=== PATIENT | male | born 1960 | race Caucasian/White ===

== ENCOUNTER 2018-06-01 05:58 | Observation (INO) ==
[2018-06-01] MEDS ORDERED: Dicyclomine 10 MG Capsule PO ONE (06:23)
[2018-06-01] MEDS ORDERED: Morphine Inj 4 MG/ML Vial IV.PUSH ONE (06:23)
--- NOTE | 2018-06-01 06:30 | ED ---
HPI General Chief Complaint: Abdominal Pain Stated Complaint: Lower abd pain Time Seen by Provider: 06/01/18 06:16 Source: patient Mode of arrival: ambulatory Limitations: no limitations History of Present Illness HPI narrative: Patient is a 58-year-old male, past medical history significant for hypertension, presents with complaint of left lower quadrant abdominal pain for the last several weeks that has worsened over the last 1-2 days. He states he has had some profuse watery, nonbloody diarrhea over the last 1-2 days in addition to nausea and nonbilious, nonbloody emesis. He has had chills but no fever. He has not been on antibiotics recently. The patient also reports that one week ago he had an episode of substernal chest pain with dyspnea that lasted 3 hours and resolved on its own. It occurred while doing nothing in particular was not associated with exertion. He has had intermittent "twinges" of this discomfort and dyspnea since then. He denies any chest pain at this time but does state that he feels like it is hard for him to take a deep breath sporadically at this time. No leg swelling or immobilization. No family history of venous thromboembolism nor early cardiac disease. MD complaint: abdominal pain Onset (ago): week(s) Location: LLQ Severity: moderate Quality: stabbing and dull Radiation: none Migration to: no migration Relieving factors: nothing Exacerbating factors: nothing Associated symptoms: nausea, vomiting, diarrhea and chills Related Data Home Medications Medication Instructions Recorded Confirmed chlorthalidone 25 mg PO DAILY 06/01/18 06/01/18 clonidine HCl 0.2 mg PO BID 06/01/18 06/01/18 gabapentin 600 mg PO TID 06/01/18 06/01/18 metoprolol tartrate 100 mg PO BID 06/01/18 06/01/18 potassium chloride [Klor-Con] 20 meq PO DAILY 06/01/18 06/01/18 sertraline 100 mg PO DAILY 06/01/18 06/01/18 Allergies Allergy/AdvReac Type Severity Reaction Status Date / Time No Known Allergies Allergy Verified 06/01/18 06:13 Review of Systems ROS: all other systems reviewed are negative [facility] Medical History Medical History Chronic back pain (Acute) Congestive heart failure (Acute) Depression (Acute) Neuropathy (Acute) Obesity (BMI 30-39.9) (Acute) Hypertension (Chronic) Surgical History Surgical History Hx of tonsillectomy (Acute) Family History Family History Mother CHF (congestive heart failure) Myocardial infarction FH: CABG (coronary artery bypass surgery) Social History Social History Substance History: No History of Abuse Second Hand Smoke Exposure: No Smoking Status: Former smoker (smoked early 20s, total 6 pack year history) Number of Pack-Years (if former smoker): 6 Smoking End Date: How Often Do You Have a Drink Containing Alcohol: Monthly or less (alcohol rare mostly during holidays) Recent Travel in [facility] within the Last 8 Weeks: No Recent Out of Country Travel within the Last 8 Weeks: No Immunization History Tetanus Immunization: Unsure Hx Influenza Vaccine This Season: No Exam Narrative Exam Narrative: GENERAL: Well-appearing male in no acute distress SKIN: Focused skin assessment warm/dry. No rashes. HEAD: Atraumatic. Normocephalic. EYES: Pupils equal and round. No scleral icterus. No injection or drainage. ENT: No nasal bleeding or discharge. Mucous membranes pink and moist. NECK: Trachea midline. No JVD. CARDIOVASCULAR: Regular rate and rhythm. No murmur appreciated. Intact and equal peripheral pulses. RESPIRATORY: No accessory muscle use. Clear to auscultation. Breath sounds equal bilaterally. GASTROINTESTINAL: Abdomen soft, nondistended. Tenderness on palpation in the left lower quadrant. MUSCULOSKELETAL: No obvious deformities. No clubbing. No cyanosis. No edema. NEUROLOGICAL: Awake and alert. No obvious cranial nerve deficits. Motor grossly within normal limits. Normal sensation. Normal speech. PSYCHIATRIC: Normal mood and affect Course Initial Documented Vital Signs Temperature 97.5 F L 06/01/18 06:02 Pulse Rate 68 06/01/18 06:02 Respiratory Rate 27 H 06/01/18 06:02 Blood Pressure 155/84 H 06/01/18 06:02 Pulse Oximetry 98 06/01/18 06:02 Last Documented Vital Signs Temperature 98.4 F 06/01/18 11:39 Pulse Rate 57 L 06/01/18 14:50 Respiratory Rate 20 06/01/18 11:39 Blood Pressure 109/67 06/01/18 11:39 Pulse Oximetry 91 L 06/01/18 11:39 Sign Out Sign Out Data: Patient Sign Out occurred on 06/01/18 at 08:46. Patient's care was discussed, and care was transferred from Tg Lagos MD to Nicolás Vickers MD. Sign Out Comment: Labs, imaging pending. Dispo per results. Last updated by Tg Lagos MD at 06/01/18 06:42 Post-Handoff Eval: The patient was signed out to me by Dr. Lagos at change of shift. We are awaiting CT scan of the M pelvis. The patient presented with abdominal pain. He is also been having intermittent chest pain for several weeks. Patient does have a history of cardiac disease with CHF. EKG and cardiac enzymes are within normal limits. CT scan shows diverticulosis with out obvious diverticulitis. Given the patient's pain and symptoms, we will treat him for early diverticulitis. He has been given ciprofloxacin 500 mg and Flagyl 500 mg 1 dose here. He will have further prescriptions written. He will be placed in the chest pain center for rule out protocol given his cardiac history and intermittent chest pain. Medical Decision Making MDM Narrative Medical decision making narrative: Patient is a 58-year-old male who presents with complaint of abdominal pain with nausea, vomiting, diarrhea in addition to intermittent chest. He appears well but does have tenderness on abdominal exam in the left lower quadrant. Vital signs are stable. EKG is unchanged from that in 2013. Chest x-ray, CT, labs have been ordered and are pending at time of checkout. Medical Screen Exam Complete: Yes Emergency Medical Condition: Yes Differential Diagnosis Differential Diagnosis: Differential diagnosis includes but is not limited to diverticulitis, electrolyte abnormality, anemia, pneumonia, anxiety, acute coronary syndrome. Medical Records Medical records reviewed: Yes I reviewed the patient's medical records. Lab Data Result diagrams: 06/01/18 06:40 06/01/18 06:40 Lab Results 06/01/18 06/01/18 06/01/18 Range/Units 06:40 06:40 06:40 WBC 9.5 (4.0-11.0) th/mm3 RBC 5.29 (4.50-5.90) mil/mm3 Hgb 15.9 (13.0-17.0) gm/dL Hct 47.8 (39.0-51.0) % MCV 90.3 (80.0-100.0) fL MCH 30.1 (27.0-34.0) pg MCHC 33.3 (32.0-36.0) % RDW 14.1 (11.6-17.2) % Plt Count 205 (150-450) th/mm3 MPV 9.1 (7.0-11.0) fL Neut % (Auto) 65.2 (16.0-70.0) % Lymph % (Auto) 22.6 (9.0-44.0) % [place] % (Auto) 9.4 H (0.0-8.0) % Eos % (Auto) 2.4 (0.0-4.0) % Baso % (Auto) 0.4 (0.0-2.0) % Neut # (Auto) 6.2 (1.8-7.7) th/mm3 Lymph # (Auto) 2.1 (1.0-4.8) th/mm3 [place] # (Auto) 0.9 (0.0-0.9) th/mm3 Eos # (Auto) 0.2 (0.0-0.4) th/mm3 Baso # (Auto) 0.0 (0.0-0.2) th/mm3 WBC Differential . Differential Comment Auto diff final Sodium 138 (136-145) meq/L Potassium 4.4 (3.5-5.1) meq/L Chloride 100 (98-107) meq/L Carbon Dioxide 30.4 (21.0-32.0) meq/L Anion Gap 8 (5-15) meq/L BUN 19 H (7-18) mg/dL Creatinine 1.19 (0.60-1.30) mg/dL Estimated GFR 62 L (>89) mL/min Random Glucose 99 (74-106) mg/dL Calcium 8.7 (8.5-10.1) mg/dL Total Bilirubin 0.5 (0.2-1.0) mg/dL AST 14 L (15-37) U/L ALT 34 (12-78) U/L Alkaline Phosphatase 103 (45-117) U/L Total Creatine Kinase (39-308) U/L Troponin I Less than 0.02 L (0.02-0.05) ng/mL B-Natriuretic Peptide 88 (0-100) pg/mL Total Protein 7.6 (6.4-8.2) g/dL Albumin 3.7 (3.4-5.0) g/dL Lipase 229 (73-393) U/L 06/01/18 06/01/18 Range/Units 09:36 11:59 WBC (4.0-11.0) th/mm3 RBC (4.50-5.90) mil/mm3 Hgb (13.0-17.0) gm/dL Hct (39.0-51.0) % MCV (80.0-100.0) fL MCH (27.0-34.0) pg MCHC (32.0-36.0) % RDW (11.6-17.2) % Plt Count (150-450) th/mm3 MPV (7.0-11.0) fL Neut % (Auto) (16.0-70.0) % Lymph % (Auto) (9.0-44.0) % [place] % (Auto) (0.0-8.0) % Eos % (Auto) (0.0-4.0) % Baso % (Auto) (0.0-2.0) % Neut # (Auto) (1.8-7.7) th/mm3 Lymph # (Auto) (1.0-4.8) th/mm3 [place] # (Auto) (0.0-0.9) th/mm3 Eos # (Auto) (0.0-0.4) th/mm3 Baso # (Auto) (0.0-0.2) th/mm3 WBC Differential Differential Comment Sodium (136-145) meq/L Potassium (3.5-5.1) meq/L Chloride (98-107) meq/L Carbon Dioxide (21.0-32.0) meq/L Anion Gap (5-15) meq/L BUN (7-18) mg/dL Creatinine (0.60-1.30) mg/dL Estimated GFR (>89) mL/min Random Glucose (74-106) mg/dL Calcium (8.5-10.1) mg/dL Total Bilirubin (0.2-1.0) mg/dL AST (15-37) U/L ALT (12-78) U/L Alkaline Phosphatase (45-117) U/L Total Creatine Kinase 43 39 (39-308) U/L Troponin I Less than 0.02 L Less than 0.02 L (0.02-0.05) ng/mL B-Natriuretic Peptide (0-100) pg/mL Total Protein (6.4-8.2) g/dL Albumin (3.4-5.0) g/dL Lipase (73-393) U/L Imaging Data Radiologist's impression: Myocardial Perfusion Scan Nuc Med 06/01/18 00:00 CONCLUSION: 1. Negative examination. Abdomen/Pelvis CT 06/01/18 06:23 CONCLUSION: 1. Uncomplicated colonic diverticulosis. 2. Posterior bibasilar atelectasis. 3. Degenerative changes and scoliosis of the thoracolumbar spine. Chest X-Ray 06/01/18 06:23 CONCLUSION: No acute disease ECG Data EKG Prior to Arrival: No Attestation: I personally reviewed and interpreted this ECG as follows: (Sinus bradycardia at a rate of 57 bpm. T-wave inversions present in lead III but no other ST or T-wave changes, when compared to EKG from 2013 this is unchanged.) Prior ECG tracings: available for review Discharge Plan Discharge Disposition Patient Disposition: 30 Still Patient Discharge Condition Condition: Stable Discharge Order Discharge Orders: Discharge Order (Routine); Ordered 06/01/18 Ordered By: Shauna Sharma Discharge Details Anticipated Discharge Date: 06/01/18 Diagnosis: Abdominal pain, acute, Acute dyspnea, Chest pain Physicians Team ED Provider: Nicolás Vickers Primary Care Provider: Hemant Sarmiento Attending Provider: Marsha Zhao Status ED Status: Left Department Discharge Information Discharge Date/Time: 06/01/18 10:00
[2018-06-01 06:57] LABS: Baso % (Auto) 0.4 % (0.0-2.0); Eos # (Auto) 0.2 th/mm3 (0.0-0.4); Eos % (Auto) 2.4 % (0.0-4.0); Hematocrit 47.8 % (39.0-51.0); Hemoglobin 15.9 gm/dL (13.0-17.0); Lymph # (Auto) 2.1 th/mm3 (1.0-4.8); Lymph % (Auto) 22.6 % (9.0-44.0); Mean Corpuscular HGB Conc 33.3 % (32.0-36.0); Mean Corpuscular Hemoglobin 30.1 pg (27.0-34.0); Mean Corpuscular Volume 90.3 fL (80.0-100.0); Mean Platelet Volume 9.1 fL (7.0-11.0); Mono # (Auto) 0.9 th/mm3 (0.0-0.9); Mono % (Auto) 9.4 % (0.0-8.0); Neut # (Auto) 6.2 th/mm3 (1.8-7.7); Neut % (Auto) 65.2 % (16.0-70.0); Platelet Count 205 th/mm3 (150-450); Red Blood Count 5.29 mil/mm3 (4.50-5.90); Red Cell Distribution Width 14.1 % (11.6-17.2); White Blood Count 9.5 th/mm3 (4.0-11.0)
[2018-06-01 07:13] LABS: Alanine Aminotransferase 34 U/L (12-78); Albumin 3.7 g/dL (3.4-5.0); Anion Gap 8 meq/L (5-15); Aspartate Aminotransferase 14 U/L (15-37); Blood Urea Nitrogen 19 mg/dL (7-18); Calcium 8.7 mg/dL (8.5-10.1); Carbon Dioxide 30.4 meq/L (21.0-32.0); Chloride 100 meq/L (98-107); Glomerular Filtration Rate 62 mL/min (>89); Glucose,Random 99 mg/dL (74-106); Lipase 229 U/L (73-393); Potassium 4.4 meq/L (3.5-5.1); Sodium 138 meq/L (136-145)
[2018-06-01 07:18] LABS: Alkaline Phosphatase 103 U/L (45-117); Total Protein 7.6 g/dL (6.4-8.2)
[2018-06-01] MEDS ORDERED: Ciprofloxacin 500 MG Tablet PO ONE (08:54)
[2018-06-01] MEDS ORDERED: metroNIDAZOLE 500 MG Tablet PO ONE (08:54)
[2018-06-01] MEDS ORDERED: Acetaminophen 500 MG Tablet PO PRN (09:14)
[2018-06-01 10:52] LABS: Creatine Kinase 43 U/L (39-308)
[2018-06-01 12:44] LABS: Creatine Kinase 39 U/L (39-308)
--- NOTE | 2018-06-01 14:14 | ECG ---
Date Performed: 06/01/2018 Time Performed: 06:28:14 PTAGE: 58 years EKG: SINUS BRADYCARDIA BORDERLINE ECG NO PREVIOUS TRACING DOCTOR: Luis Wynne Interpretating Date/Time 06/01/2018 14:13:00
--- NOTE | 2018-06-01 14:22 | ECG ---
Date Performed: 06/01/2018 Time Performed: 09:43:06 PTAGE: 58 years EKG: SINUS BRADYCARDIA BORDERLINE ECG PREVIOUS TRACING : 06/01/2018 06.28 Since previous tracing, no significant change noted DOCTOR: Luis Wynne Interpretating Date/Time 06/01/2018 14:20:22
[2018-06-01] MEDS ORDERED: Regadenoson Inj 0.4 MG/5 ML Syringe IV.PUSH ONE (15:19)
--- NOTE | 2018-06-02 14:11 | ECG ---
Date Performed: 06/01/2018 Time Performed: 13:27:52 PTAGE: 58 years EKG: SINUS BRADYCARDIA MINIMAL VOLTAGE CRITERIA FOR LVH, CONSIDER NORMAL VARIANT ABNORMAL ECG WA RNING: DATA QUALITY MAY AFFECT INTERPRETATION INTERPRETATION BASED ON A DEFAULT AGE OF 40 YEARS PREVIOUS TRACING : 06/01/2018 09.43 Since previous tracing, no significant change noted DOCTOR: Luis Wynne Interpretating Date/Time 06/02/2018 14:10:37
== END 2018-06-01 17:39 | disposition home or self-care (01) ==
LOC: NEPE 05:58 → NEDA 05:58 → NEPGCP 10:00
PROVIDERS: ADMIT Internal Medicine Interventional Cardiology; ATTEND Internal Medicine Interventional Cardiology